=== PATIENT | male | born 1950 | race Caucasian/White ===

== ENCOUNTER → 2020-11-21 13:55 | Outpatient (BNVA) | payer MEDICARE, SELFPAY | PROVIDERS: PCP Pediatrics; Visit Provider Internal Medicine | DX: I48.3 Typical atrial flutter (principal); I45.10 Unspecified right bundle-branch block; I10 Essential (primary) hypertension; Z79.01 Long term (current) use of anticoagulants | CPT/HCPCS: 93005; 99212 ==

== ENCOUNTER → 2021-04-17 10:23 | Outpatient (BNVA) | payer MEDICARE, SELFPAY | PROVIDERS: PCP Pediatrics; Visit Provider Internal Medicine | DX: I48.3 Typical atrial flutter (principal); I48.0 Paroxysmal atrial fibrillation; I45.10 Unspecified right bundle-branch block; I10 Essential (primary) hypertension; Z79.01 Long term (current) use of anticoagulants | CPT/HCPCS: 93005; 99212 ==

== ENCOUNTER → 2021-05-06 13:54 | Outpatient (REF) | payer MEDICARE, SELFPAY ==
--- NOTE | 2021-05-06 13:56 | HM_ITS ---
REQUESTING PROVIDER: Dr. Nye. REASON TO TEST: Palpitations. INTERPRETATION: The patient was hooked up to cardiac event monitor from 05/06/2021 to 06/05/2021 for a total period of 30 days. FINDINGS: Baseline rhythm is normal sinus rhythm with heart rate varying from 31 beats per minute to 140 beats per minute. There was intermittent atrial fibrillation and flutter also noted. First episode of atrial fibrillation, the patient reported symptoms of fluttering on 05/06/2021, of atrial fibrillation that was short lasting. Subsequently, patient had auto triggered events on at night time. The patient reported symptoms of palpitation, which correlated with atrial fibrillation. Subsequently, around 05/07 at 12:12 a.m., patient converted from atrial fibrillation to sinus rhythm with a pause of 3.3 seconds. The patient continued to have symptoms of frequent PACs/isolated PVCs noted. The patient then had multiple other brief autotriggered events of atrial fibrillation. The patient on 05/21/2021 again complained of racing of fluttering, which correlated atrial fibrillation at 110 beats per minute. Symptoms are self-limiting. The patient had another episode of racing of fluttering on 06/02/2021 at 9:34 p.m., which correlated with atrial flutter and 140 beats per minute. Symptoms then subsided on its own. The patient then remained in sinus rhythm with isolated PACs. CONCLUSION: A cardiac event monitor is remarkable. 1. Baseline normal sinus rhythm. 2. Intermittent symptoms of racing of fluttering correlated with paroxysmal atrial flutter or fibrillation. 3. Frequent PACs noted. 4. First episode at nighttime conversion from atrial fibrillation to sinus rhythm with a pause of 3.3 seconds. Berhane Major MD NRS/MODL / [id number]
== END ==
LOC: HO.CARD 13:54
PROVIDERS: Visit Provider Internal Medicine
DX: I48.0 Paroxysmal atrial fibrillation (principal); R00.2 Palpitations
CPT/HCPCS: 93270

== ENCOUNTER → 2021-06-04 08:15 | Outpatient (REF) | payer MEDICARE, SELFPAY ==
--- NOTE | 2021-06-04 08:19 | CA_ITS ---
Transthoracic Echocardiogram Patient (Last, First, Middle): Oswaldo Baez, Gender: Male Date of : 1950 Age: 71 Procedure Date: 06/04/2021 Procedure Type: Transthoracic Echocardiogram Location: OP Height: 187.96 cm Weight: 92.99 kg BSA: 2.20 m2 Heart Rate: bpm BP: 119 / 72 mmHg Hogshead Head Matcher: YR/VARUN Referring MD: Huber Nye MD Fleet Sales Associate: Berhane Major MD Symptoms: I48.0 - Paroxysmal atrial fibrillation Study Quality: Fair ECG Rhythm: Sinus Conclusions: - 1. Normal LV systolic function with grade 1 diastolic dysfunction 2. Normal cardiac valvular Doppler 3. No gross pericardial effusion Findings Left Ventricle Normal left ventricular size, thickness, and systolic function. The visually estimated ejection fraction is between 55-60%. Spectral Doppler is indicative of an impaired relaxation filling pattern. E/E prime ratio is <8, consistent with normal filling pressures. Evidence suggests grade I (mild) diastolic dysfunction. Right Ventricle Normal right ventricular cavity size and systolic function. Atria Both atria are normal in size. There is no evidence of interatrial shunt. Aortic Valve Normal aortic valve structure and function. There is no aortic valve stenosis. There is no aortic valve regurgitation. Mitral Valve Normal mitral valve structure and function. There is trace mitral valve regurgitation. There is no mitral valve stenosis. Pulmonic Valve The pulmonic valve is likely normal. Tricuspid Valve Normal tricuspid valve structure. Tricuspid regurgitation envelope is inadequate for calculation of right ventricular systolic pressure. Great Vessels All visible segments of the aorta are normal in size. The pulmonary artery was not well visualized. Venous The inferior vena cava is normal in size and collapses greater than 50% with inspiration. Pericardium/Pleural There is no evidence of pericardial effusion. Prior Study Comparison No significant change compared to prior study dated: 09/14/2017. Measurements 2D Linear Measurements IVSd: 1.06 0.6-0.9/0.6-1.0 cm LVIDd: 4.56 3.9-5.3/4.2-5.9 cm LVIDd Index: 2.07 2.4-3.2/2.2-3.1 cm/m2 LVIDs: 3.06 2.0-3.6 cm LVPWd: 1.06 0.7-1.1 cm Ao Root: 4.00 2.1-3.5 cm LA Diam: 3.20 2.7-3.8/3.0-4.0 cm LAIDs Index: 1.45 1.5-2.3 cm/m2 LV Mass: 211.39 67-162/88-224 g LV Mass Index: 96.09 43-95/49-115 g/m2 LVOT Diam: 2.30 3.0+(-)1.3 cm 2D Systolic Function EF 4C: 53.10 >55% EF 2C: 53.50 >55% Mitral Valve MV Pk E: 0.53 MV PK A: 0.78 MV Decel Time: 356.00 E/A: 0.70 E'Lateral: 8.49 E'Medial: 5.55 E/E' Med: 9.50 E/E' Lat: 6.20 PHT: 104.00 MVA PHT: 2.12 Decel [place]: 1.48 Aortic Valve AoV Pk Robel: 1.15 AoV Mn Robel: 0.84 AoV VTI: 0.24 AoV Pk Grad: 5.00 Aov Mn Grad: 3.00 WILIAN Cont.VTI: 3.78 LVOT LVOT Pk Robel: 1.04 LVOT Mn Robel: 0.73 LVOT VTI: 0.22 LVOT Pk Grad: 4.00 LVOT Mn Grad: 2.00 LVOT Diam: 2.30 LVOT Area: 4.15 Diastolic Function MV Pk E: 0.53 MV Pk A: 0.78 E/A: 0.70 E'Medial: 5.55 E/E' Med: 9.50 E' Laterial: 8.49 E/E' Lat: 6.20 Great Vessels Aorta Ao Root-2D: 4.00 2.0-3.7 cm Ao Asc: 3.40 2.1-3.4 cm Updated in Other Vendor System with Status of Final Berhane Major MD electronically signed on 06/06/2021 11:22:34 AM with status of Final
== END ==
LOC: HO.CARD 08:15
PROVIDERS: Visit Provider Internal Medicine
DX: I48.0 Paroxysmal atrial fibrillation (principal)
CPT/HCPCS: 93306

== ENCOUNTER → 2021-06-12 12:21 | Outpatient (BNVA) | payer MEDICARE, SELFPAY | PROVIDERS: PCP Pediatrics; Visit Provider Internal Medicine | DX: R00.2 Palpitations (principal); I48.3 Typical atrial flutter; I48.0 Paroxysmal atrial fibrillation; I45.10 Unspecified right bundle-branch block; I10 Essential (primary) hypertension; E78.5 Hyperlipidemia, unspecified; G47.33 Obstructive sleep apnea (adult) (pediatric); Z87.891 Personal history of nicotine dependence; Z79.01 Long term (current) use of anticoagulants | CPT/HCPCS: 99212 ==

== ENCOUNTER → 2021-06-25 09:50 | Outpatient (REF) | payer MEDICARE, SELFPAY | LOC: HO.SL 09:50 | PROVIDERS: PCP Pediatrics; Visit Provider Internal Medicine | DX: G47.33 Obstructive sleep apnea (adult) (pediatric) (principal); I48.0 Paroxysmal atrial fibrillation | CPT/HCPCS: 95806 ==

== ENCOUNTER → 2021-08-06 10:50 | Outpatient (BNVA) | payer MEDICARE, SELFPAY | PROVIDERS: PCP Pediatrics; Referring Provider Pediatrics; Visit Provider Internal Medicine | DX: I48.3 Typical atrial flutter (principal); I48.0 Paroxysmal atrial fibrillation; I45.10 Unspecified right bundle-branch block; I10 Essential (primary) hypertension | CPT/HCPCS: 99212 ==

== ENCOUNTER → 2021-11-20 08:21 | Outpatient (BNVA) | payer MEDICARE, SELFPAY | PROVIDERS: PCP Pediatrics; Visit Provider Internal Medicine | DX: I48.3 Typical atrial flutter (principal); I48.0 Paroxysmal atrial fibrillation; I45.10 Unspecified right bundle-branch block; I10 Essential (primary) hypertension | CPT/HCPCS: 93005; 99212 ==

== ENCOUNTER → 2022-05-11 08:15 | Outpatient (REF) | payer MEDICARE, SELFPAY ==
--- NOTE | 2022-05-11 08:28 | HM_ITS ---
Conclusion: 1. Patient was monitored for total period of 3 days and 1 hour 2. Baseline rhythm is normal sinus rhythm with average heart of 60 beats per minute 3. No significant pauses or bradycardia noted 4. 19 short runs of supraventricular tachycardia, longest lasting 33 beats at 125 beats per minute 5. Total of 3260 PACs accounting for 1.09% of total beats accounting for frequent PACs 6. No patient reported events MTDD
== END ==
LOC: HO.CARD 08:15
PROVIDERS: Visit Provider Internal Medicine
DX: I48.0 Paroxysmal atrial fibrillation (principal)
CPT/HCPCS: 93242

== ENCOUNTER → 2022-05-20 13:06 | Outpatient (BNVA) | payer MEDICARE, SELFPAY | PROVIDERS: PCP Pediatrics; Visit Provider Internal Medicine | DX: I48.3 Typical atrial flutter (principal); I48.0 Paroxysmal atrial fibrillation; I45.10 Unspecified right bundle-branch block; I10 Essential (primary) hypertension; R07.2 Precordial pain; Z79.01 Long term (current) use of anticoagulants; Z79.899 Other long term (current) drug therapy | CPT/HCPCS: 99212 ==

== ENCOUNTER → 2022-06-16 07:53 | Outpatient (REF) | payer MEDICARE, SELFPAY ==
--- NOTE | ~2022-06-16 | NM_ITS ---
EXERCISE MYOCARDIAL PERFUSION STUDY INDICATION: Chest pain, assess for coronary disease and ischemia TECHNIQUE: The patient was brought in for an exercise perfusion study on 06/16/2022. Patient performed exercise as per Johnny protocol and was injected 30 mCi of sestamibi once target heart rate was achieved. Images were obtained using the SPECT gamma camera interlaced with the gating device. Images were obtained in supine position. Resting perfusion study was performed on 06/17/2022. Patient was administered 30 mCi of sestamibi intravenously at rest. Images were then obtained in supine position. Total DLP 85mGy-cm. Images were processed with the software and compared side to side in short axis, horizontal long axis and vertical long axis views. FINDINGS: Raw images were reviewed. The stress perfusion study showed no significant perfusion abnormality. Both uncorrected as well as CT attenuation corrected images were reviewed. The gated study shows normal LV systolic function with calculated LVEF of 60%. LV cavity is normal in size. The gated study shows normal wall thickening and contraction of segments. Resting study shows no significant perfusion abnormality. Gating at rest reveals normal wall motion with ejection fraction at 54%. The findings are consistent with no definite reversible or fixed perfusion defects. NM/NM cardiolite stress test IMPRESSION: 1. Myocardial perfusion imaging study shows likely normal myocardial perfusion. No definitive evidence of any ischemia or infarction. 2. Gated LVEF is 60% during stress and 54% during rest. 3. Transient ischemic dilatation not present. EKG component of the test reported separately.
--- NOTE | 2022-06-16 07:56 | CA_ITS ---
Acquisition Time: 2022-06-16 08:03:23 Total Exercise Time: 00:05:30 Test Indications: ABN EKG, CP, AFIB Medications: SEE CHART Protocol: BRITTNEY Max HR: 142 BPM 95% of Pred: 148 BPM Max BP: 202/094 mmHG Max Work Load: 7.0 METS Exercise stress test with exercise, 5 min 30 sec of Brittney protocol, achieving 95% MPHR, 7 METs, with report of a brief pain in his chest during exercise which resolved quickly, no sob, with isolated PACs, with hypertensive response to exercise with max BP 202/94, without EKG changes meeting criteria for ischemia. In recovery his BP returned to baseline. Nuclear images pending. Test reviewed with Dr Major. Referred By: Huber Nye Overread By: RONALDO SANTIAGO
== END ==
LOC: HO.CARD 07:53
PROVIDERS: Visit Provider Internal Medicine Cardiovascular Disease
DX: R07.2 Precordial pain (principal)
CPT/HCPCS: 78452; 93017; A9500

== ENCOUNTER → 2022-11-26 07:56 | Outpatient (BNVA) | payer MEDICARE, SELFPAY | PROVIDERS: PCP Pediatrics; Visit Provider Internal Medicine | DX: I48.3 Typical atrial flutter (principal); I48.0 Paroxysmal atrial fibrillation; I45.10 Unspecified right bundle-branch block; I10 Essential (primary) hypertension | CPT/HCPCS: 93005; 99212 ==

== ENCOUNTER 2023-04-05 09:47 | Outpatient (REF) | payer MEDICARE, SELFPAY | END 2023-04-05 09:48 | disposition home or self-care (01) | LOC: HO.SH 09:47 | PROVIDERS: Visit Provider Pediatrics | DX: Z01.118 Encounter for examination of ears and hearing with other abnormal findings (principal); H90.3 Sensorineural hearing loss, bilateral; H69.91 Unspecified Eustachian tube disorder, right ear | CPT/HCPCS: 92557; 92567 ==

== ENCOUNTER 2023-06-02 08:54 | Outpatient (AMB) | payer MEDICARE, SELFPAY ==
--- NOTE | 2023-06-02 08:55 | A.OFFVIS_ITS ---
Intake Vital Signs 06/02/23 09:00 Height 6 ft 2 in Weight 207 lb 10.807 oz BMI 26.7 BP 130/76 Blood Pressure Location Lt brachial Position Sitting Pulse 66 Intake Visit Reasons: 6M follow up Intake Note: 6 month follow up Vp Site Required: No Accompanied by: Self / Same As Patient Allergies No Known Allergies [No Known Allergies*] Allergy (Verified 06/02/23 09:01) Medication List - Last Reconciled 06/02/23 by Huber Nye MD amitriptyline 10 mg PO BEDTIME amlodipine 5 mg PO DAILY apixaban (Eliquis) 5 mg PO BID atorvastatin 20 mg PO DAILY hydrochlorothiazide 25 mg PO DAILY metoprolol succinate ER 25 mg PO DAILY tamsulosin 0.4 mg PO BEDTIME HPI HPI Comments History of Present Illness Details Edward returns for follow-up regarding atrial flutter/fibrillation. Initially detected in 2017 and he was doing well on medications. However was having more frequent episodes recently and that led to EP consultation and ablation. Since that time, no arrhythmias. He states that he is doing very well. No complaints like angina or shortness of breath or in fact anything cardiac sounding. Comorbidities include hypertension, dyslipidemia, CKD. Overall, seems to be doing good. 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 Mother No problems noted. Social History Alcohol intake: current Alcohol intake frequency: 0-2 drinks per day Alcohol type: wine Patient Tobacco Use Status: Former Tobacco user Review of Systems Const Denies weakness ENT Denies dizziness Card Denies chest pain, Denies chest pain with activity, Denies syncope, Denies rapid heart rate, Denies pedal edema, Denies edema, Denies leg edema, Denies lightheadedness, Denies palpitations, Denies dyspnea, Denies dyspnea on exertion and Denies orthopnea Resp Denies cough, Denies dyspnea and Denies dyspnea on exertion GI Denies hematochezia and Denies change in stool character Musc Denies abnormal gait, Denies muscle cramps, Denies muscle weakness, Denies numbness, Denies radiating pain into limb and Denies tingling Neuro Denies abnormal gait, Denies dizziness, Denies syncope, Denies numbness, Denies tingling and Denies weakness Endo Denies palpitations Physical Exam Vital Signs: Last Vital Signs Pulse 66 06/02/23 09:00 BP 130/76 06/02/23 09:00 BMI result Body Mass Index 26.7 Const General: comfortable and no acute distress Orientation/consciousness: patient oriented x3 HEENT Other: Unremarkable Head: Yes normal to inspection Neck Neck: Yes normal visual inspection Chest Chest palpation & inspection: normal inspection of the chest Resp Auscultation: clear to auscultation bilaterally Cardio Palpation: normal PMI Heart sounds: S1 normal heart sound present, S2 normal heart sound present, no gallops, no murmurs and no rubs GI Palpation (GI): Soft to palpation Back/Spine/Pelvis Other: unremarkable Skin General skin exam: no rashes or lesions noted Neuro General: patient oriented x3 Extrem General: Yes normal to inspection Psych Mental Status: mental status grossly normal Assessment & Plan Assessment & Plan (1) Typical atrial flutter: Code(s): I48.3 - Typical atrial flutter (2) PAF (paroxysmal atrial fibrillation): Code(s): I48.0 - Paroxysmal atrial fibrillation (3) Right bundle branch block: Code(s): I45.10 - Unspecified right bundle-branch block (4) Essential hypertension: Code(s): I10 - Essential (primary) hypertension Plan Overall, he seems fairly stable. Continue beta-blockers or changes. Continue anticoagulation. Renal function stable. Hypertension is well managed. He is on amlodipine. Today's blood pressure is 130/76 mm Hg. Otherwise, we can plan on seeing him in 1 year. He will call us with any ongoing concerns. Total time spent including review of data, counseling, documentation, coordination of care-31 minutes. Coding Level of Care Code Est Pt Level 4 (09223) Diagnoses Typical atrial flutter I48.3 PAF (paroxysmal atrial fibrillation) I48.0 Right bundle branch block I45.10 Essential hypertension I10
[2023-06-02 09:00] VITALS: BP 130/76; PULSE 66; BMI 26.7
== END 2023-06-02 09:10 | disposition home or self-care (01) ==
PROVIDERS: Visit Provider Internal Medicine
DX: I48.3 Typical atrial flutter (principal); I48.0 Paroxysmal atrial fibrillation; I45.10 Unspecified right bundle-branch block; I10 Essential (primary) hypertension
CPT/HCPCS: 99214

== ENCOUNTER → 2023-06-02 08:54 | Outpatient (BNVA) | payer MEDICARE, SELFPAY | PROVIDERS: Visit Provider Internal Medicine | DX: I48.3 Typical atrial flutter (principal); I48.0 Paroxysmal atrial fibrillation; I45.10 Unspecified right bundle-branch block; I10 Essential (primary) hypertension | CPT/HCPCS: 99212 ==

== ENCOUNTER 2023-10-11 13:46 | Outpatient (REF) | payer MEDICARE, SELFPAY | END 2023-10-11 13:47 | disposition home or self-care (01) | LOC: HO.SH 13:46 | PROVIDERS: Visit Provider Pediatrics | DX: Z01.118 Encounter for examination of ears and hearing with other abnormal findings (principal); H90.3 Sensorineural hearing loss, bilateral | CPT/HCPCS: 92557; 92567 ==

== ENCOUNTER 2024-06-01 08:45 | Outpatient (AMB) | payer MEDICARE, SELFPAY ==
[2024-06-01 08:49] VITALS: BP 116/64; PULSE 61; BMI 25.9
--- NOTE | 2024-06-01 08:49 | MHC.OFFVIS ---
Vital Signs 06/01/24 08:49 Height 6 ft 2 in Weight 201 lb 8.04 oz BMI 25.9 BP 116/64 Blood Pressure Location Lt brachial Position Sitting Pulse 61 Intake Visit Reasons: 1 year follow up Medical Services Coordinator Required: No Accompanied by: Self / Same As Patient Allergies No Known Allergies [No Known Allergies*] Allergy (Verified 06/02/23 09:01) Medication List - Last Reconciled 06/01/24 by Huber Nye MD amitriptyline 10 mg PO BEDTIME amlodipine 5 mg PO DAILY 90 days apixaban (Eliquis) 5 mg PO BID atorvastatin 20 mg PO DAILY cholecalciferol (vitamin D3) 10 mcg PO DAILY hydrochlorothiazide 25 mg PO DAILY melatonin 3 mg PO BEDTIME PRN metoprolol succinate ER 25 mg PO DAILY tamsulosin 0.4 mg PO BEDTIME HPI Comments Details: Oswaldo returns for follow-up regarding atrial flutter/fibrillation. Initially detected in 2017 and he was doing well on medications. However was having more frequent episodes recently and that led to EP consultation and ablation. After the ablation, he has been doing pretty good without any recurrent issues. 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 Mother No problems noted. Social History Alcohol intake: current Alcohol intake frequency: 0-2 drinks per day Alcohol type: wine Patient Tobacco Use Status: Former Tobacco user Review of Systems Const Denies chills, Denies fatigue, Denies fever(s), Denies weight gain and Denies weight loss ENT Denies dizziness Card Denies chest pain, Denies leg edema, Denies lightheadedness, Denies palpitations, Denies dyspnea on exertion, Denies orthopnea and Denies other Resp Denies cough and Denies dyspnea on exertion GI Denies hematochezia and Denies change in stool character Musc Denies abnormal gait, Denies muscle weakness, Denies numbness, Denies radiating pain into limb and Denies tingling Neuro Denies abnormal gait, Denies dizziness, Denies numbness and Denies tingling Endo Denies fatigue and Denies palpitations Physical Exam Vital Signs: Last Vital Signs Pulse 61 06/01/24 08:49 BP 116/64 06/01/24 08:49 BMI result Body Mass Index 25.9 Const General: comfortable and no acute distress Orientation/consciousness: patient oriented x3 HEENT Other: Unremarkable Head: Yes normal to inspection Neck Neck: Yes normal visual inspection Chest Chest palpation & inspection: normal inspection of the chest Resp Auscultation: clear to auscultation bilaterally Cardio Palpation: normal PMI Heart sounds: S1 normal heart sound present, S2 normal heart sound present, no gallops, no murmurs and no rubs GI Palpation (GI): Soft to palpation Back/Spine/Pelvis Other: unremarkable Skin General skin exam: no rashes or lesions noted Neuro General: patient oriented x3 Extrem General: Yes normal to inspection Psych Mental Status: mental status grossly normal Office Procedures EKG Details: EKG with sinus rhythm at 61/Min; right bundle-branch block; sinus arrhythmia. [id number], Complete Assessment & Plan Assessment & Plan (1) Typical atrial flutter: Code(s): I48.3 - Typical atrial flutter Category: Medical (2) PAF (paroxysmal atrial fibrillation): Code(s): I48.0 - Paroxysmal atrial fibrillation Category: Medical (3) Right bundle branch block: Code(s): I45.10 - Unspecified right bundle-branch block Category: Medical (4) Essential hypertension: Code(s): I10 - Essential (primary) hypertension Category: Medical Plan Stable cardiac status. Continue beta-blockers. Continue anticoagulation. Last creatinine 1.1. Stable BP. He will call us with any ongoing concerns. Coding Level of Care Code Est Pt Level 3 (63855) Diagnoses Typical atrial flutter I48.3 PAF (paroxysmal atrial fibrillation) I48.0 Right bundle branch block I45.10 Essential hypertension I10 CPT Codes EKG - CPT: 55796-[id number], Complete ([id number])
== END 2024-06-01 09:08 | disposition home or self-care (01) ==
PROVIDERS: PCP Pediatrics; Visit Provider Internal Medicine
DX: I48.3 Typical atrial flutter (principal); I48.0 Paroxysmal atrial fibrillation; I45.10 Unspecified right bundle-branch block; I10 Essential (primary) hypertension
CPT/HCPCS: 93010; 99213

== ENCOUNTER → 2024-06-01 08:45 | Outpatient (BNVA) | payer MEDICARE, SELFPAY | PROVIDERS: PCP Pediatrics; Visit Provider Internal Medicine | DX: I48.3 Typical atrial flutter (principal); I48.0 Paroxysmal atrial fibrillation; I45.10 Unspecified right bundle-branch block; I10 Essential (primary) hypertension | CPT/HCPCS: 93005; 99212 ==

== ENCOUNTER 2025-06-05 08:56 | Outpatient (AMB) | payer MEDICARE, SELFPAY ==
[2025-06-05 09:03] VITALS: BP 120/62; PULSE 52; BMI 25.5
--- NOTE | 2025-06-05 09:03 | A.OFFVIS_ITS ---
Vital Signs 06/05/25 09:03 Height 6 ft 2 in Weight 198 lb 6.656 oz BMI 25.5 BP 120/62 Blood Pressure Location Lt brachial Position Sitting Pulse 52 Pulse Source Monitor Intake Visit Reasons: 1 yr follow up Allergies No Known Allergies (No Known Allergies*) Allergy (Verified 06/02/23 09:01) Medication List - Last Reconciled 06/05/25 by Huber Nye MD amitriptyline 10 mg PO BEDTIME amlodipine 5 mg PO DAILY apixaban (Eliquis) 5 mg PO BID atorvastatin 20 mg PO DAILY cholecalciferol (vitamin D3) 10 mcg PO DAILY hydrochlorothiazide 25 mg PO DAILY melatonin 3 mg PO BEDTIME PRN metoprolol succinate ER 25 mg PO DAILY tadalafil (Cialis) 10 mg PO DAILY PRN tamsulosin 0.4 mg PO BEDTIME HPI Comments Details: Oswaldo returns for follow-up regarding atrial flutter/fibrillation. Initially detected in 2017 and he was doing well on medications. However was having more frequent episodes and that led to EP consultation and ablation. Since then, he has been doing fine. 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 Nothing during the daytime. He has got no clear-cut symptoms like dizziness or presyncope. 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 Mother No problems noted. Social History Alcohol intake: current Alcohol intake frequency: 0-2 drinks per day Alcohol type: wine Patient Tobacco Use Status: Former Tobacco user Review of Systems Const Denies weakness ENT Denies dizziness Card Denies chest pain, Denies chest pain with activity, Denies syncope, Denies rapid heart rate, Denies pedal edema, Denies edema, Denies leg edema, Denies lightheadedness, Denies palpitations, Denies dyspnea, Denies dyspnea on exertion and Denies orthopnea Resp Denies cough, Denies dyspnea and Denies dyspnea on exertion GI Denies hematochezia and Denies change in stool character Musc Denies abnormal gait, Denies muscle cramps, Denies muscle weakness, Denies numbness, Denies radiating pain into limb and Denies tingling Neuro Denies abnormal gait, Denies dizziness, Denies syncope, Denies numbness, Denies tingling and Denies weakness Endo Denies palpitations Physical Exam Vital Signs: Last Vital Signs Pulse 52 06/05/25 09:03 BP 120/62 06/05/25 09:03 BMI result Body Mass Index 25.5 Const General: comfortable and no acute distress Orientation/consciousness: patient oriented x3 HEENT Other: Unremarkable Head: Yes normal to inspection Neck Neck: Yes normal visual inspection Chest Chest palpation & inspection: normal inspection of the chest Resp Auscultation: clear to auscultation bilaterally Cardio Palpation: normal PMI Heart sounds: S1 normal heart sound present, S2 normal heart sound present, no gallops, no murmurs and no rubs GI Palpation (GI): Soft to palpation Back/Spine/Pelvis Other: unremarkable Skin General skin exam: no rashes or lesions noted Neuro General: patient oriented x3 Extrem General: Yes normal to inspection Psych Mental Status: mental status grossly normal Office Procedures EKG Details: EKG with sinus bradycardia with sinus arrhythmia at 52/Min; right bundle-branch block pattern; [place]. [id number], Complete Assessment & Plan Assessment & Plan (1) Typical atrial flutter: Code(s): I48.3 - Typical atrial flutter Category: Medical Plan: No recent issues. He can remain on low-dose beta-blockers/anticoagulation. Advised him to monitor for slow heart rate during the day on smart watch. If any concerns, he will contact us. We discussed about Holter monitor but he would rather just hold off. (2) PAF (paroxysmal atrial fibrillation): Code(s): I48.0 - Paroxysmal atrial fibrillation Category: Medical Plan: As above. (3) Right bundle branch block: Code(s): I45.10 - Unspecified right bundle-branch block Category: Medical Plan: Periodic EKGs to monitor for any progressive conduction system disease. (4) Essential hypertension: Code(s): I10 - Essential (primary) hypertension Category: Medical Plan: Stable. Plan Discussion Notes I discussed with the patient the importance of monitoring his heart rate, particularly during the day, and the potential need for a heart monitor if daytime bradycardia occurs. We reviewed the current medication regimen, emphasizing that the metoprolol dosage should remain unchanged unless symptoms develop. The patient was advised to maintain regular follow-ups with his primary care physician to ensure ongoing management of blood pressure and kidney function. Patient was informed and verbally consented to the use of an ambient scribe for clinic note documentation during this visit. Patient Instructions: - Monitor your heart rate regularly, especially during the day. - Continue taking metoprolol as prescribed unless you experience fatigue or a significant drop in heart rate. - Report any episodes of daytime bradycardia. Coding Level of Care Code Est Pt Level 4 (47465) Complex EM visit Add On G2211 Diagnoses Typical atrial flutter I48.3 PAF (paroxysmal atrial fibrillation) I48.0 Right bundle branch block I45.10 Essential hypertension I10 CPT Codes EKG - CPT: 23540-[id number], Complete ([id number])
--- OUTSIDE RECORDS SUMMARY | 2025-06-05 09:21 | XMS_ITS | Data Portability ---
Author Organization [place] - [facility], Allergy Address [address] [address] Care Team Providers Care Supervisor Travel Trailer Name Role Phone LOUISA RING Primary Care Provider Assessment Encounter Date Assessment Date Assessment LastModified by Organization Details LastModified Time 07/20/2024 07/20/2024 Discussed various types, models and levels of technology. patient is interested in mid level technology in a rechargeable option. Recommended EcoIntense Smart 330 LILA R in arthur color #3 R/L M receivers with #8 open left/#8 double vented right domes. 2272 deposit/2271 due. [email or web address] Not available 07/20/2024 09:55:37 08/03/2024 08/03/2024 Excellent fit to real ear. Reviewed daily care and maintenance. Downloaded and reviewed rené. Linked Iphone to aids. Set to #2 adpatation for comfort. F/u 2 weeks [email or web address] Not available 08/07/2024 10:38:07 08/17/2024 08/17/2024 Doing fine - hearing so much better in noisy situations - increased to #4 adaptation for clarity. F/U 2 weeks [email or web address] Not available 08/17/2024 13:19:16 08/31/2024 08/31/2024 4 week FFU. Doing very well - swopped out left dome to small round like right - was having some FB issues - reran FB sweep - now OK. Loves new hearing aids can hear so much better. 6mo appt made. [email or web address] Not available 08/31/2024 13:33:20 02/01/2025 02/01/2025 CL & CK both aids working fine. Reviewed use rené to make customized progtams. Annual appt made [email or web address] Not available 02/01/2025 10:30:30 Plan of Treatment Reminders Order Date Submit Date Provider Last Modified By Organization Details Last Modified Time Details Appointments PEREZ Fitting Follow Up (60) 2024 09:00A M SOLO ORTEGA, JATINDER Not available Not available Not available Lab None recorded . Referral None recorded . Procedures None recorded . Surgeries None recorded . Imaging None recorded . Medication Orders None recorded . Patient TargetsNo targets recorded. Patient InstructionsNo instructions recorded. Reason for Referral None Reported. Results Created Date Observation Date Name Description Value Unit Range Abnormal Flag Note LastModifiedBy Organization Detail LastModifiedTime 07/05/20 24 10/11/2023 yini ng/apple morales tic resul t No observ ation record ed. [email or web address] Not Available 12:12:09 Result Notes None recorded. 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 0666528817991 5 Active 2023 JATINDER TREVINO [address] [place] [address], [place], [address], [place] - [facility] [place] 4 15:38:43 Sensorineur al hearing loss 60797367 Active 2023 JATINDER TREVINO 100 [facility], [address] [facility], [place], [address], [place] [facility] [place] 4 15:48:02 Bilateral tinnitus 9660050674678 Active 2023 CAT CAPUTO MD 100 [facility],[place] [address], [place], [address], [place] [facility] [place] 16:15:46 Problem Notes None recorded. Procedures Surgical History Date Name Laterality Status Provider Name and Address Organization Details Recorded Time 05/29/20 24 Comp Audio with Tymps - 29624 & 15001 completed TARYN ART, [facility] 100 [facility], [place], [address], [place] - [facility] 05/29/2024 15:41:35 total knee replacement completed Hawa Farfan [place] - [facility] [place] 05/29/2024 15:27:03 total replacement of hip completed Hawa Farfan [place] - [facility] [place] 05/29/2024 15:27:13 Imaging Results None recorded. Procedure Notes None recorded. Medical Equipment None Reported. Allergies No known drug allergies Medications Name Sig Start Date Stop Date Status Note LastModified by Organization Details LastModified Time atorvastatin 20 mg tablet TAKE 1 TABLET BY MOUTH DAILY active Not Available Not Available No t Available amlodipine 5 mg tablet TAKE 1 TABLET BY MOUTH ONCE DAILY active Not Available Not Available No t Available tamsulosin 0.4 mg capsule TAKE 1 CAPSULE BY MOUTH AT BEDTIME active Not Available Not Available No t Available amitriptylin e 10 mg tablet take1 tablet By Mouth Daily at bedtime, x90 days active Not Available Not Available No t Available hydrochlorot hiazide 25 mg tablet TAKE 1 TABLET BY MOUTH DAILY active Not Available Not Available No t Available metoprolol succinate ER 25 mg tablet,exten ded release 24 hr TAKE 1 TABLET BY MOUTH ONCE DAILY active Not Available Not Available No t Available amoxicillin 875 mg-potassium clavulanate 125 mg tablet TAKE 1 TABLET BY MOUTH TWICE DAILY FOR 10 DAYS 05/29 completed Not Available Not Available Not Available cyclobenzapr ine 5 mg tablet TAKE 1 TABLET BY MOUTH THREE TIMES DAILY FOR 7 DAYS active Not Available Not Available No t Available fenofibrate 160 mg tablet TAKE 1 TABLET BY MOUTH DAILY active Not Available Not Available No t Available Eliquis 5 mg tablet TAKE 1 TABLET BY MOUTH TWICE DAILY active Not Available Not Available No t Available Vitals None Recorded Social History None recorded. Functional Status None recorded. Mental Status None recorded. Family History Nothing Reported. Medical History Condition Response Arthritis Y Hypertension Y Kidney Disease Y Past Encounters Encounter ID Performer Location Encounter Start Date Encounter Closed Date Diagnosis/Indication Diagnosis SNOMED-CT Code Diagnosis ICD10 Code Diagnosis Note [id number] CAT CAPUTO MD [facility] 100 [place] [address] 05/29/2024 15:10:59 05/29/2024 16:26:24 Sensorineural hearing loss of bilateral ears 120815587 H90.3 Patient's audiogram is demonstrat ing an asymmetric sensorineu ral hearing loss affecting the right ear greater than left. This is enough of an asymmetry to warrant retrocochl ear workup. Recommend MRI scan of the brain and internal auditory canals with gadolinium . We will help to arrange this. If it is negative, I will let him know over the portal, but otherwise I will call him with the results. Patient's audiogram shows bilateral moderate sensorineu ral hearing loss with well maintained speech discrimina tion. There is enough hearing loss to affect day-to-day hearing performanc e. We discussed in detail the pros and cons of amplificat ion (hearing aids). We discussed the connection between untreated hearing and increased risk of dementia, falling and accidents. Patient is interested in learning about amplificat ion. Initially I recommende d he return to [facility] audiology, but his already gets hearing aids through our office with [facility] and he would like to meet with [facility] to discuss amplificat ion. We will help to arrange this after the MRI scan is completed. Bilateral tinnitus [address]22 [id number] [id number] H93.13 Today we discussed the pathophysi ology of tinnitus and the absence of consistent ly successful pharmacolo gic treatments for tinnitus. We discussed masking strategies to decrease awareness of the tinnitus, including using a white noise machine, music, or television . We discussed how exposure to loud noise can worsen tinnitus so I recommende d hearing protection . We also discussed other ways to potentiall y help reduce awareness of tinnitus including avoidance of caffeine, salty meals and NSAIDs.In light of the underlying sensorineu ral hearing loss, the patient may want to further consider amplificat ion. This would not only help with hearing, but can also be instrument al in acting as a masking source to help reduce the awareness of tinnitus. [id number] JATINDER TREVINO [facility] 100 [place] [address] 05/29/2024 15:37:51 06/02/2024 13:35:16 Sensorineural hearing loss of bilateral ears [id number] H90.3 Right Ear:Mild to severe SNHL with excellent speech discrimina tion.Type A tympanogra m.Left Ear:Normal hearing through 2K Hz sloping to a moderate SNHL with excellent speech discrimina tion.Type A tympanogra m. [id number] SOLO ORTEGA AUD [place] [place] 100 [facility],[address] [address] [place] [address] 07/20/2024 08:53:12 07/20/2024 13:33:36 Sensorineural hearing loss of bilateral ears 355563936 H90.3 [id number] SOLO ORTEGA AUD [facility]Z [place] 100 [facility],[address] [address] [place] [address] 08/03/2024 14:50:39 08/07/2024 15:39:04 Sensorineural hearing loss of bilateral ears [id number] H90.3 [id number] SOLO ORTEGA AUD [place] [place] 100 [facility],[place] [address] [place] [address] 08/17/2024 12:58:30 08/18/2024 07:22:28 Sensorineural hearing loss of bilateral ears 085358213 H90.3 SOLO ORTEGA AUD P[facility]Z [place] 100 [facility],[address] [place] [address] 08/31/2024 11:24:44 09/04/2024 07:19:23 Sensorineural hearing loss of bilateral ears [id number] H90.3 [id number] SOLO ORTEGA AUD P[facility] [place] 100 [facility],[address] [place] [address] 02/01/2025 09:50:24 02/05/2025 14:19:04 Sensorineural hearing loss of bilateral ears 782074052 H90.3 Health Concerns Section Related Observation LastModified by Organization Detai ls LastModified Time None Recorded Concern Status LastModified by Organization Details LastModified Time None Recorded Advance Directives Directive None Recorded Payers Insurance Date Sequence Insurance Name Policy Number Policy Jaffe Covered Member ID Jaffe Member ID Guarantor Name 03/22/2025 2 [facility] [id number] Oswaldo Baez [id number] Oswaldo Baez 03/22/2025 1 [place] [facility] Oswaldo Baez [id number] Oswaldo Baez Notes Date Note Type Note Provider Name and Address Organization Details Recorded Time 07/20/2024 text/html Patient has a kn own bilateral SNHL AD>. Recently cleared for amplification by Dr Caputo. He has noticed increased difficulty hearing in everyday situations and is getting frustrated. Patient is retired. Patient has no hearing aid benefit. His is a hearing aid patient of [employer]. SOLO ORTEGA, [address], [address], [facility] 07/20/2024 09:57:14 08/03/2024 text/html Patient has a kn own bilateral SNHL AD>. Recently cleared for amplification by Dr Caputo. He has noticed increased difficulty hearing in everyday situations and is getting frustrated. Patient is retired. Patient has no hearing aid benefit. His is a hearing aid patient of [employer]. Discussed various types, models and levels of technology. patient is interested in mid level technology in a rechargeable option. Recommended [employer] Moment Smart 330 LILA R in arthur color #3 R/L M receivers with #8 open left/#8 double vented right domes. 2272 deposit/227 due. SOLO ORTEGA, [facility] [address], [address], [facility] 08/07/2024 10:39:14 08/17/2024 text/html Patient has a kn own bilateral SNHL AD>. Recently cleared for amplification by Dr Caputo. He has noticed increased difficulty hearing in everyday situations and is getting frustrated. Patient is retired. Patient has no hearing aid benefit. His is a hearing aid patient of [employer].Discussed various types, models and levels of technology. patient is interested in mid level technology in a rechargeable option. Currently wearing [employer]x Moment Smart 330 LILA R in arthur color #3 R/L M receivers with #8 open left/#8 double vented right domes dispensed 08/03/2024 SOLO ORTEGA, AUD 100 [facility],[address], [address], [place] - [facility] 08/17/2024 13:20:16 08/31/2024 text/html Patient has a kn own bilateral SNHL AD>. Recently cleared for amplification by Dr Caputo. He has noticed increased difficulty hearing in everyday situations and is getting frustrated. Patient is retired. Patient has no hearing aid benefit. His is a hearing aid patient of [employer].Discussed various types, models and levels of technology. patient is interested in mid level technology in a rechargeable option. Currently wearing [employer]x Moment Smart 330 LILA R in arthur color #3 R/L M receivers with #8 open left/#8 double vented right domes dispensed 08/03/2024 SOLO ORTEGA, AUD 100 [facility],[address], [address], [facility] - [facility] 08/31/2024 13:33:37 02/01/2025 text/html Patient has a kn own bilateral SNHL AD>. Recently cleared for amplification by Dr Caputo. He has noticed increased difficulty hearing in everyday situations and is getting frustrated. Patient is retired. Patient has no hearing aid benefit. His is a hearing aid patient of [employer].Discussed various types, models and levels of technology. patient is interested in mid level technology in a rechargeable option. Currently wearing Widex Moment Smart 330 LILA R in arthur color #3 R/L M receivers with #8 open left/#8 double vented right domes dispensed 4Doing very well - swopped out left dome to small round like right - was having some FB issues - reran FB sweep - now OK. Loves new hearing aids can hear so much better. 6mo appt made SOLO ORTEGA, AUD 100 [facility],[address], [address], [facility] - [facility] 02/01/2025 10:31:08
--- OUTSIDE RECORDS SUMMARY | 2025-06-05 09:21 | XMS_ITS | Clinical Summary ---
Author Organization [address] Address [address] [place] [phone] Phone Care Team Providers Care Property Caretaker Name Role Phone Duncan Howard MD Primary Care Provider Allergies No known active allergies Medications acetaminophen (TYLENOL) 325 mg tablet Take 2 tablets (650 mg total) by mouth every 6 (six) hours if needed. Active amitriptyline (ELAVIL) 10 mg tablet Take 1 tablet (10 mg total) by mouth at bedtime. 2 Active amLODIPine (NORVASC) 5 mg tablet Take 1 tablet (5 mg total) by mouth 1 (one) time each day. 4 Active atorvastatin (LIPITOR) 20 mg tablet Take 1 tablet (20 mg total) by mouth 1 (one) time each day. 2 Active chondroitin sulfate A sodium 400 mg capsule Take 1 tablet by mouth 1 (one) time each day. Active coenzyme Q-10 50 mg capsule Take by mouth. A ctive cyclobenzaprine (FLEXERIL) 5 mg tablet Take 1 tablet (5 mg total) by mouth 3 (three) times a day if needed for muscle spasms. for up to 30 doses. 2 Active apixaban (Eliquis) 5 mg tablet Take 1 tablet (5 mg total) by mouth 2 (two) times a day. 8 Active fluorouraciL (EFUDEX) 5 % cream Apply topically 2 (two) times a day. sparingly x 4 weeks 1 Active hydroCHLOROthia zide (HYDRODIURIL) 25 mg tablet Take 1 tablet (25 mg total) by mouth 1 (one) time each day. 2 Active metoprolol succinate (TOPROL-XL) 25 mg 24 hr tablet Take 1 tablet (25 mg total) by mouth 1 (one) time each day. 1 Active tamsulosin (FLOMAX) 0.4 mg 24 hr capsule Take 1 capsule (0.4 mg total) by mouth 1 (one) time each day. . Take 30 mins after same meal every day. 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 Overview (11/01/2024): 05/29/2022, [facility], left medial inferior chest, biopsy performed Atrial fibrillation ([facility] V24, [facility] V28) 0 05/16/2018 Arthritis, degenerative, localized, primary, wilks d 01/17/2015 Hypercalcemia 11/23/2013 Umbilical hernia 02/15/2013 CKD (chronic kidney disease) stage 3, GFR 30-59 ml/min ([facility] V24, [facility] V28) 02/07/2013 Low back pain 08/09/2012 Benign prostatic hyperplasia with urinary obstru ction 11/12/2011 Hypertension 11/13/2010 Depressive disorder 11/29/2006 Diverticulitis of colon without hemorrhage 11/29 Overview (11/01/2024): Incidental finding at colonoscopy 2004, [facility]. Pure hypercholesterolemia 11/29/2006 Encounters Date Type Department Care Team Description 04/26/2025 2:15 PM EDT Office Visit Nephrology - [address] [phone] Luis Enrique Rand MD Stage 3 chronic kidney disease, unspecified whether stage 3a or 3b CKD ([facility] V24, [facility] V28) (Primary Dx); Hypertension, unspecified type 2025 Telephone Nephrology [id number] [place] [phone] Luis Enrique Rand MD Labs Only from Last 3 Months Immunizations Name Administration Dates Next Due H1N1 Inj Preservative Free 10/09/2009 Influenza Quadravalent, 0.5m l (Fluad) 65yo and older 08/12/2021 Influenza Quadravalent, 0.5m l (Fluzone High-dose) 65yo and older 09/11/2022 Influenza trivalent, 0.5mL ( Fluad) 65yo and older 07/18/2020,08/03/2019,08/26/2018,08/16,07/24/2015 Influenza trivalent, 0.5mL, preservative free (Fluarix; FluLaval; Fluzone) ages 6mo and older (Afluria) 3 years and older 09/16/2016,09/05/2014,08/16/2013,08/09,08/14/2011,09/26/2010 Pfizer (ages 12 & older) Biv alent, COVID-19 08/28/2022 Pfizer SARS-CoV-2 COVID-19, mRNA, LNP-S, preservative free 12/16/2021,08/12/2021,01/23/2021,01/01 Pneumococcal conjugate 13 va lent (Prevnar 13, PCV13) 2mo and older 07/24/2015 Pneumococcal polysaccharide 23 valent (Pneumovax 23) 2yo and older 09/16/2016 Td Tetanus diptheria (Tdvax) 7yo and older 01/17/2013,11/29/2006 Tdap Tetanus diptheria acell ular pertussis (Boostrix; Adacel) 7yo and older 01/03/2014 Zoster Live 08/14/2011 Zoster recombinant (Shingrix ) 19yo and older 03/15/2022,12/26/2021 Surgical History Surgery Date Site/Laterality Comments OTHER SURGICAL HISTORY PROCEDURE: CHG ANGRPH CATH F-UP STD TCAT OTHER THAN THROMBYLSIS; COMMENT: diagnostic COLONOSCOPY 10/27/2004 PROCEDURE: HISTORICAL COLONOSCOPY; COMMENT: [facility]; diverticulosis COLONOSCOPY 01/07/2011 PROCEDURE: HISTORICAL COLONOSCOPY; COMMENT: diverticulosis OTHER SURGICAL HISTORY PROCEDURE: HISTORICAL CA BASAL CELL; COMMENT: face HERNIA REPAIR 2012 PROCEDURE: REPAIR UMBILICAL HERNIA; COMMENT: insertion of mesh COLONOSCOPY 2015 PROCEDURE: HISTORICAL COLONOSCOPY; COMMENT: no polyps MOLE REMOVAL PROCEDURE: HISTORICAL MOLE (REMOVAL OF); COMMENT: Dysplastic nevus 11/02 left flank (mild atypia) COLONOSCOPY 03/19/2022 PROCEDURE: HISTORICAL COLONOSCOPY; COMMENT: tubular adenoma and diverticulosis Medical History Medical History Date Comments Pure hypercholesterolemia DX:Pur e hypercholesterolemia Depressive disorder, not els ewhere classified DX:Depressive disorder, not elsewhere classified Diverticulosis of colon (wit hout mention of hemorrhage) DX:Diverticulosis of colon ( without mention of hemorrhage) Osteoarthrosis, unspecified whether generalized or localized, lower leg DX:Osteoarthrosis, unspecified whether generalized or localized, lower leg Wheezing 04/06/2008 DX:Wheezing Hypertension 11/13/2010 DX:Hypertension Hypercalcemia 11/23/2013 DX:Hypercalcemia OA (osteoarthritis) of knee DX:O A (osteoarthritis) of knee; COMMENT: right History of basal cell carcin keisha of skin 04/14/2013 DX:History of basal cell car cinoma of skin History of dysplastic nevus DX:H istory of dysplastic nevus; COMMENT: Dysplastic nevus 11/02 left flank (mild atypia) History of actinic keratoses DX: History of actinic keratoses Malignant neoplasm of skin of face DX:Malignant neoplasm of skin of face Family History Medical History Relation Name Comments Arthritis Father Hypertension Father Prostate cancer Father 76 years old Colon cancer Mother dx age 40 Other cancer Mother liver cancer Relation Name Status Comments Brother 1 Alive 1 brother, age 60, healthy Brother 2 (Age 38) sepsis Daughter Alive 2 daughters age s 28 and 29, healthy Father Maternal Grandfather old age Maternal Grandmother old age Mother (Age 42) liver canc er Other 1 Alive grandson Humphrey 2008 Other 2 Alive grandson Molina 2 011 Paternal Grandfather old age Paternal Grandmother old age Sister Alive 1 sister recent ly dx yolanda grav Social History Tobacco Use Types Packs/Day Years Used Date Smoking Tobacco: Former Cigarettes 2 17.6 0 1970 - 11/15/1987 Smokeless Tobacco: Never Alcohol Use Standard Drinks/Week Comments Yes 30 (1 standard drink = 0.6 oz pu re alcohol) Sex and Gender Information Value Date Recorded Sex Assigned at Not on file Legal Sex Male 11:21 AM EST Gender Identity Not on file Sexual Orientation Not on file Obstetrics History Last Filed Vital Signs Vital Sign Reading Time Taken Comments Blood Pressure 135/76 04/26/2025 2:04 PM EDT Pulse 58 04/26/2025 2:04 PM EDT Temperature - - Respiratory Rate - - Oxygen Saturation - - Inhaled Oxygen Concentration - - Weight 90.7 kg (200 lb) 04/26/2025 2:04 PM EDT Height 188 cm (6' 2 ) 06/19/2022 2:45 PM EDT Body Mass Index 25.68 06/19/2022 2:45 PM EDT Plan of Treatment Health Maintenance Due Date Last Done Comments Falls Risk Assessment 10/24/2022 Social Influencers of Health Screening 10/24/2022 Medicare Annual Wellness Visit 06/19/2023 06/19/2022 Depression Screening 11/15/2024 COVID-19 Vaccine (9 - Pfizer risk season) 2025 10/20/2024, 09/17/2023, 08/28/2022, Additional history exists Influenza Vaccine (#1) 2025 , 09/17/2023, 09/11/2022, Additional history exists Hypertension/CHF/CAD Annual BMP Blood Test 05/21/2026 05/21/2025, 03/28/2024, 03/28/2024 Colorectal Cancer Screening: Colonoscopy 03/19/2027 03/19/2022 Cholesterol Screening (Lipid Panel) 06/22/2027 06/22/2022 DTaP,Tdap,and Td Vaccines (5 - Td or Tdap) 10/15/2033 10/15/2023, 01/03/2014, 01/17/2013, Additional history exists Hepatitis C Screening Completed 06/26/2013 Abdominal Aortic Aneurysm (AAA) Screen Completed 07/30/2015 Pneumococcal Vaccine: 50+ Years Completed 09/16/2016, 07/24/2015 Zoster Vaccines Completed 04/10/2022, 05/0 11/2021, 12/26/2021, Additional history exists RSV Immunization Adult Patients Completed 09/24/2023 HIB Vaccines Aged Out No longer eligi ble based on patient's age to complete this topic HPV Vaccines Aged Out No longer eligi ble based on patient's age to complete this topic Hepatitis A Vaccines Aged Out No long er eligible based on patient's age to complete this topic Hepatitis B Vaccines Aged Out No long er eligible based on patient's age to complete this topic IPV Vaccines Aged Out No longer eligi ble based on patient's age to complete this topic MMR Vaccines Aged Out No longer eligi ble based on patient's age to complete this topic Meningococcal ACWY Vaccine Aged Out N o longer eligible based on patient's age to complete this topic Meningococcal B Vaccine Aged Out No l onger eligible based on patient's age to complete this topic RSV Immunization Patients Under 20 months Aged Out No longer eligible based on patient's age to complete this topic Varicella Vaccines Aged Out No longer eligible based on patient's age to complete this topic Procedures Procedure Name Priority Date/Time Associated Diagnosis Comments MICROALBUMIN CREATININE URINE RATIO Routine 05/25/2025 8:02 AM EDT Stage 3 chronic kidney disease, unspecified whether stage 3a or 3b CKD ([facility] V24, [facility] V28) BASIC METABOLIC PANEL Routine 05/21/2025 8:06 AM EDT Stage 3 chronic kidney disease, unspecified whether stage 3a or 3b CKD ([facility] V24, [facility] V28) LIPID PANEL Routine 06/22/2022 COLONOSCOPY Routine 03/19/2022 ABDOMINAL AORTIC ANEURYSM SCRREN Routine 07/30/2015 HEPATITIS C SCREENING Routine 06/26/2013 from Last 3 Months or Most Recently Relevant to Health Maintenance Results * Microalbumin creatinine urine ratio (05/25/2025 8:02 AM EDT) Creatinine, Urine 78.0 mg/dL LAB CHEMISTRY METHOD 05/25/2025 10:45 AM EDT [facility] Microalb, Ur 10.5 0.0 - 29.0 mg/L LAB CHEMISTRY METHOD 05/25/2025 10:45 AM EDT [facility] Microalb/Creat Ratio 13 <30 mg/g creat LAB CHEMISTRY METHOD 05/25/2025 10:45 AM [facility] Urine Urine specimen obtained by clean catch procedure / Unknown Non-blood Collection / Unknown 05/25/2025 8:02 AM EDT 05/25/2025 8:02 AM EDT us Luis Enrique Rand MD LAB URINE ORDERABLES Final Res ult [facility] [address] [place] [address], [place] [phone] * (ABNORMAL) Basic metabolic panel (05/21/2025 8:06 AM EDT) Sodium 137 133 - 145 mmol/L LAB CHEMISTRY METHOD 05/21/2025 11:06 AM [facility] Potassium 3.6 3.5 - 5.5 mmol/L LAB CHEMISTRY METHOD 05/21/2025 11:06 AM [facility] Chloride 101 96 - 110 mmol/L LAB CHEMISTRY METHOD 05/21/2025 11:06 AM [facility] CO2 30 21 - 32 mmol/L LAB CHEMISTRY METHOD 05/21/2025 11:06 AM [facility] Anion Gap 6 3 - 11 LAB CHEMISTRY METHOD 05/21/2025 11:06 AM [facility] Glucose 114(H) 70 - 100 mg/dL LAB CHEMISTRY METHOD 05/21/2025 11:06 AM [facility] BUN 19 5 - 25 mg/dL LAB CHEMISTRY METHOD 05/21/2025 11:06 AM [facility] Creatinine 1.24 0.70 - 1.30 mg/dL LAB CHEMISTRY METHOD 05/21/2025 11:06 AM [facility] eGFR 61 >=60 mL/min/1. 73m2 LAB CHEMISTRY METHOD 05/21/2025 11:06 AM [facility] Comment:Calculation based on the Chronic Kidney Disease Epidemiology Collaboration (CKD-EPI) equation refit without adjustment for race. BUN/Creatinine Ratio 15.3 LAB CHEMISTRY METHOD 05/21/2025 11:06 AM EDT [facility] Calcium 9.9 8.5 - 10.5 mg/dL LAB CHEMISTRY METHOD 05/21/2025 11:06 AM EDT [facility] Blood Venous blood specimen / Unknown Venipuncture / Unknown 05/21/2025 8:06 AM EDT 05/21/2025 8:06 AM EDT Luis Enrique Rand MD LAB BLOOD ORDERABLES Final Res ult [facility] [address] [place] [address], [place] [phone] * (ABNORMAL) Lipid panel (06/22/2022) Pathologist [facility] LDL/HDL Ratio 4 0 - 4 Triglycerides 103 0 - 150 mg/dL Cholesterol 173 0 - 200 mg/dL HDL 47 >=40 mg/dL LDL Cholesterol 106(A) 0 - 100 mg/dL Blood Venous blood specimen / Unknown Result [facility] Greta Doyle MD LAB BLOOD ORDERABLES Maggie l Result * Colonoscopy (03/19/2022) Pathologist [facility] Colonoscopy normal, abstracted Anatomical Region Laterality Modality Other Result [facility] Historical Yanira [employer] Final Result * Abdominal Aortic Aneurysm Screen (07/30/2015) Pathologist [facility] Abdominal Aortic Aneurysm (AAA) Screening abstracted Anatomical Region Laterality Modality Other Result [facility] Yanira [employer] Final Result * Hepatitis C Screening (06/26/2013) Pathologist [facility] Hepatitis C Screening abstracted Greta Doyle MD HEALTH MAINTENANCE Final Result from Last 3 Months or Most Recently Relevant to Health Maintenance Insurance MEDICARE [facility] Care Teams Property Caretaker Relationship Specialty Start Date End Date Duncan Howard MD [address] [place] [address] PCP - General Internal Medicine 04/17/22
--- OUTSIDE RECORDS SUMMARY | 2025-06-05 09:21 | XMS_ITS | Clinical Summary ---
Author Organization [facility] Address [address] [place] [id number] Care Team Providers Care Forestry Extension Specialist Name Role Phone Unavailable Primary Care Provider Unavailabl e Social History Tobacco Use Types Packs/Day Years Used Date Smoking Tobacco: Never Assessed Sex and Gender Information Value Date Recorded Sex Assigned at Not on file Legal Sex Male 12:08 PM EDT Gender Identity Not on file Sexual Orientation Not on file Plan of Treatment Upcoming Encounters Date Type Department Care Team (Late st Contact Info) Description 04/29/2026 1:15 PM EDT Office Visit [facility] [address] [phone] Luis Enrique Rand MD [address] [phone] Health Maintenance Due Date Last Done Comments Colorectal Cancer Screening: Annual FOBT 1999 Colorectal Cancer Screening: Colonoscopy 1999 Colorectal Cancer Screening: Sigmoidoscopy 1999 Influenza Vaccine (#1) 2025 , 07/18/2020, 08/03/2019, Additional history exists Pneumococcal Vaccine: 50+ Years Completed 09/16/2016, 07/24/2015 Hepatitis B Vaccine Aged Out No longe r eligible based on patient's age to complete this topic
== END 2025-06-05 09:21 | disposition home or self-care (01) ==
LOC: HO.HCS 08:57
PROVIDERS: PCP Pediatrics; Visit Provider Internal Medicine
DX: I48.3 Typical atrial flutter (principal); I48.0 Paroxysmal atrial fibrillation; I45.10 Unspecified right bundle-branch block; I10 Essential (primary) hypertension
CPT/HCPCS: 93010; 99214; G2211

== ENCOUNTER → 2025-06-05 08:56 | Outpatient (BNVA) | payer MEDICARE, SELFPAY | PROVIDERS: PCP Pediatrics; Visit Provider Internal Medicine | DX: I48.3 Typical atrial flutter (principal); I48.0 Paroxysmal atrial fibrillation; I45.10 Unspecified right bundle-branch block; I10 Essential (primary) hypertension | CPT/HCPCS: 93005; 99212 ==